=== PATIENT | female | born 1985 | race Caucasian/White ===

== ENCOUNTER 2016-09-18 16:26 | Emergency (ER) | payer MEDICAID ==
[~2016-09-18] VITALS: Ht 165.1 cm; Wt 63.2 kg
[2016-09-18 18:39] LABS: ANION GAP 9 mmol/L (8-16); CALCIUM, TOTAL 8.8 mg/dL (8.8-10.5); CARBON DIOXIDE 28 mmol/L (22-29); CHLORIDE 105 mmol/L (98-107); CREATININE 0.77 mg/dL (0.60-1.30); GLOMERULAR FILTR. RATE CALC > 60 mL/min (>60); POTASSIUM 4.1 mmol/L (3.5-5.1); SODIUM SERUM 142 mmol/L (136-145); UREA NITROGEN, BLOOD 17 mg/dL (7-18)
[2016-09-18 18:43] LABS: ALANINE AMINOTRANSFERASE 22 U/L (12-78); ALBUMIN 3.7 g/dL (3.4-5.0); ASPARTATE AMINOTRANSFERASE 13 U/L (15-37); BILIRUBIN,TOTAL 0.6 mg/dL (0.1-1.0); CREATINE KINASE, TOTAL 61 U/L (26-192); TOTAL PROTEIN, SERUM 7.4 g/dL (6.4-8.2)
[2016-09-18 18:50] LABS: BASOPHILS % (AUTO) 0.9 % (0.0-2.0); EOSINOPHILS % (AUTO) 2.9 % (1.0-6.0); HEMATOCRIT 36.2 % (36-46); HEMOGLOBIN 11.7 g/dL (12.0-16.0); LYMPHOCYTES # (AUTO) 2.2 K/uL (1.0-4.8); LYMPHOCYTES % (AUTO) 25.3 % (22.0-44.0); MEAN CORPUSCULAR HEMOGLOBIN 29.3 pg (26.0-34.0); MEAN CORPUSCULAR HGB CONC 32.3 G/dL (31.0-37.0); MEAN CORPUSCULAR VOLUME 91 fL (80-100); MONOCYTES # (AUTO) 0.7 K/uL (0.1-1.0); MONOCYTES % (AUTO) 7.9 % (2.0-9.0); NEUTROPHILS # (AUTO) 5.4 K/uL (1.8-7.7); PLATELET COUNT (AUTO) 286 K/uL (150-450); RED BLOOD CELL COUNT(AUTO) 3.98 MIL/uL (4.00-5.20); RED CELL DISTRIBUTION WIDTH 14.4 % (11.5-14.5); WHITE BLOOD COUNT (AUTO) 8.6 K/uL (4.5-11.0)
[2016-09-18 19:10] LABS: ADD UA MICROSCOPIC NO; APPEARANCE,URINE CLEAR (CLEAR); GLUCOSE, URINE (UA) NEGATIVE (NEGATIVE); KETONES,URINE NEGATIVE (NEGATIVE); LEUKOCYTE ESTERASE ,URINE NEGATIVE (NEGATIVE); OCCULT BLOOD,URINE NEGATIVE (NEGATIVE); PH,URINE 7.5 (5.0-8.0); PROTEIN,URINE NEGATIVE (NEGATIVE)
[2016-09-18 20:02] LABS: B-TYPE NATRIURETIC PEPTIDE 29 pg/mL (0-100)
[2016-09-18 23:24] VITALS: BP 138/85
== END 2016-09-18 23:26 | disposition home or self-care (01) ==
LOC: EMS 16:27
DX: I10 Essential (primary) hypertension (principal); F41.9 Anxiety disorder, unspecified; R51 Headache; F15.10 Other stimulant abuse, uncomplicated; F19.90 Other psychoactive substance use, unspecified, uncomplicated; Z88.0 Allergy status to penicillin
CPT/HCPCS: 70450; 87040; 93005; 99285

== ENCOUNTER 2016-09-21 18:08 | Emergency (ER) | payer MEDICAID ==
[~2016-09-21] VITALS: Ht 165.1 cm; Wt 65.9 kg
[2016-09-21] MEDS ORDERED: LISI-660 PO (18:17)
[2016-09-21 19:03] LABS: BASOPHILS % (AUTO) 0.5 % (0.0-2.0); EOSINOPHILS % (AUTO) 2.9 % (1.0-6.0); HEMATOCRIT 37.6 % (36-46); HEMOGLOBIN 12.1 g/dL (12.0-16.0); LYMPHOCYTES # (AUTO) 2.2 K/uL (1.0-4.8); MEAN CORPUSCULAR HEMOGLOBIN 29.1 pg (26.0-34.0); MEAN CORPUSCULAR HGB CONC 32.3 G/dL (31.0-37.0); MEAN CORPUSCULAR VOLUME 90 fL (80-100); MONOCYTES # (AUTO) 0.7 K/uL (0.1-1.0); MONOCYTES % (AUTO) 6.6 % (2.0-9.0); NEUTROPHILS # (AUTO) 6.7 K/uL (1.8-7.7); PLATELET COUNT (AUTO) 301 K/uL (150-450); RED BLOOD CELL COUNT(AUTO) 4.16 MIL/uL (4.00-5.20); RED CELL DISTRIBUTION WIDTH 14.5 % (11.5-14.5); WHITE BLOOD COUNT (AUTO) 9.8 K/uL (4.5-11.0)
[2016-09-21 19:25] LABS: LACTIC ACID 0.9 mmol/L (0.4-2.0)
[2016-09-21 19:30] LABS: ANION GAP 8 mmol/L (8-16); CALCIUM, TOTAL 8.6 mg/dL (8.8-10.5); CARBON DIOXIDE 30 mmol/L (22-29); CHLORIDE 106 mmol/L (98-107); CREATININE 0.84 mg/dL (0.60-1.30); GLOMERULAR FILTR. RATE CALC > 60 mL/min (>60); SODIUM SERUM 144 mmol/L (136-145); UREA NITROGEN, BLOOD 19 mg/dL (7-18)
[2016-09-21 19:35] LABS: ALANINE AMINOTRANSFERASE 18 U/L (12-78); ALBUMIN 3.7 g/dL (3.4-5.0); ASPARTATE AMINOTRANSFERASE 13 U/L (15-37); BILIRUBIN,TOTAL 0.5 mg/dL (0.1-1.0); TOTAL PROTEIN, SERUM 7.5 g/dL (6.4-8.2)
[2016-09-21 21:10] VITALS: BP 131/85
== END 2016-09-21 21:10 | disposition home or self-care (01) ==
LOC: EMS 18:09
DX: R51 Headache (principal); I10 Essential (primary) hypertension; Z87.891 Personal history of nicotine dependence; Z88.0 Allergy status to penicillin; F15.90 Other stimulant use, unspecified, uncomplicated
CPT/HCPCS: 80074; 83605; 87040; 99284; 99406

== ENCOUNTER 2016-09-25 01:31 | Emergency (ER) | payer MEDICAID ==
[~2016-09-25] VITALS: Ht 165.1 cm; Wt 66.0 kg
[~2016-09-25 01:31] MED LIST: LISI-660 PO
[2016-09-25 02:35] LABS: APPEARANCE,URINE CLEAR (CLEAR); GLUCOSE, URINE (UA) NEGATIVE (NEGATIVE); KETONES,URINE NEGATIVE (NEGATIVE); LEUKOCYTE ESTERASE ,URINE NEGATIVE (NEGATIVE); OCCULT BLOOD,URINE NEGATIVE (NEGATIVE); PH,URINE 5.5 (5.0-8.0); PROTEIN,URINE NEGATIVE (NEGATIVE)
[2016-09-25 02:39] LABS: ADD UA MICROSCOPIC NO
[2016-09-25 03:05] LABS: BASOPHILS # (AUTO) 0.03 K/uL (0.00-0.20); BASOPHILS % (AUTO) 0.3 % (0.0-2.0); EOSINOPHILS # (AUTO) 0.28 K/uL (0.00-0.70); EOSINOPHILS % (AUTO) 2.96 % (1.0-6.0); HEMATOCRIT 33.5 % (36-46); HEMOGLOBIN 10.9 g/dL (12.0-16.0); LYMPHOCYTES # (AUTO) 2.2 K/uL (1.0-4.8); LYMPHOCYTES % (AUTO) 23.3 % (22.0-44.0); MEAN CORPUSCULAR HEMOGLOBIN 29.9 pg (26.0-34.0); MEAN CORPUSCULAR HGB CONC 32.7 G/dL (31.0-37.0); MEAN CORPUSCULAR VOLUME 92 fL (80-100); MONOCYTES # (AUTO) 0.8 K/uL (0.1-1.0); MONOCYTES % (AUTO) 8.6 % (2.0-9.0); NEUTROPHILS # (AUTO) 6.2 K/uL (1.8-7.7); NEUTROPHILS % (AUTO) 64.9 % (40.0-70.0); PLATELET COUNT (AUTO) 246 K/uL (150-450); RED BLOOD CELL COUNT(AUTO) 3.65 MIL/uL (4.00-5.20); RED CELL DISTRIBUTION WIDTH 14.4 % (11.5-14.5); WHITE BLOOD COUNT (AUTO) 9.6 K/uL (4.5-11.0)
[2016-09-25 03:11] LABS: ANION GAP 3 mmol/L (8-16); CALCIUM, TOTAL 8.4 mg/dL (8.8-10.5); CARBON DIOXIDE 31 mmol/L (22-29); CHLORIDE 106 mmol/L (98-107); CREATININE 0.72 mg/dL (0.60-1.30); GLOMERULAR FILTR. RATE CALC > 60 mL/min (>60); POTASSIUM 3.4 mmol/L (3.5-5.1); SODIUM SERUM 140 mmol/L (136-145); UREA NITROGEN, BLOOD 17 mg/dL (7-18)
[2016-09-25 03:17] LABS: ALANINE AMINOTRANSFERASE 17 U/L (12-78); ALBUMIN 3.2 g/dL (3.4-5.0); ASPARTATE AMINOTRANSFERASE 11 U/L (15-37); BILIRUBIN,TOTAL 0.5 mg/dL (0.1-1.0); TOTAL PROTEIN, SERUM 6.5 g/dL (6.4-8.2)
[2016-09-25 04:19] VITALS: BP 138/99
== END 2016-09-25 05:00 | disposition home or self-care (01) ==
LOC: EMS 01:32
DX: K80.50 Calculus of bile duct without cholangitis or cholecystitis without obstruction (principal); I10 Essential (primary) hypertension; F15.90 Other stimulant use, unspecified, uncomplicated; Z88.0 Allergy status to penicillin; Z87.891 Personal history of nicotine dependence
CPT/HCPCS: 76705; 93005; 99285

== ENCOUNTER 2017-01-05 19:56 | Emergency (ER) | payer MEDICAID | END 2017-01-05 20:26 | disposition left against medical advice (07) | LOC: EMS 19:58 | DX: R69 Illness, unspecified (principal); Z53.21 Procedure and treatment not carried out due to patient leaving prior to being seen by health care provider ==

== ENCOUNTER 2017-07-15 06:43 | Emergency (ER) | payer MEDICAID ==
[~2017-07-15] VITALS: Ht 165.1 cm; Wt 68.0 kg
[2017-07-15] MEDS ORDERED: SODIUM CHLORIDE 0.9% 1,000 ML IV ONE (07:30)
[2017-07-15 07:40] LABS: BASOPHILS % (AUTO) 0.4 % (0.0-2.0); EOSINOPHILS % (AUTO) 0.1 % (1.0-6.0); HEMATOCRIT 34.8 % (36-46); HEMOGLOBIN 11.9 g/dL (12.0-16.0); LYMPHOCYTES # (AUTO) 0.9 K/uL (1.0-4.8); LYMPHOCYTES % (AUTO) 10.7 % (22.0-44.0); MEAN CORPUSCULAR HEMOGLOBIN 30.3 pg (26.0-34.0); MEAN CORPUSCULAR HGB CONC 34.1 G/dL (31.0-37.0); MEAN CORPUSCULAR VOLUME 89 fL (80-100); MONOCYTES # (AUTO) 0.4 K/uL (0.1-1.0); NEUTROPHILS # (AUTO) 7.3 K/uL (1.8-7.7); NEUTROPHILS % (AUTO) 83.8 % (40.0-70.0); PLATELET COUNT (AUTO) 300 K/uL (150-450); RED BLOOD CELL COUNT(AUTO) 3.92 MIL/uL (4.00-5.20); RED CELL DISTRIBUTION WIDTH 14.1 % (11.5-14.5)
[2017-07-15 07:50] LABS: ANION GAP 10 mmol/L (8-16); CALCIUM, TOTAL 9.1 mg/dL (8.8-10.5); CARBON DIOXIDE 26 mmol/L (22-29); CHLORIDE 104 mmol/L (98-107); CREATININE 0.71 mg/dL (0.60-1.30); GLOMERULAR FILTR. RATE CALC > 60 mL/min (>60); GLUCOSE,RANDOM 124 mg/dL (70-110); POTASSIUM 3.6 mmol/L (3.5-5.1); SODIUM SERUM 140 mmol/L (136-145); UREA NITROGEN, BLOOD 18 mg/dL (7-18)
[2017-07-15 07:56] LABS: ALANINE AMINOTRANSFERASE 22 U/L (12-78); ALBUMIN 4.2 g/dL (3.4-5.0); ALKALINE PHOSPHATASE 64 U/L (46-116); ASPARTATE AMINOTRANSFERASE 19 U/L (15-37); BILIRUBIN,TOTAL 0.5 mg/dL (0.1-1.0); LIPASE 60 U/L (73-393)
[2017-07-15] MEDS ORDERED: LORazepam 2 MG/ML VIAL IVP ONE ×2 (08:00→09:30)
[2017-07-15 08:39] LABS: AMPHET/METH SCREEN,URINE POSITIVE (NEGATIVE); BARBITURATE SCREEN, URINE NEGATIVE (NEGATIVE); BENZODIAZEPINES SCREEN,URINE NEGATIVE (NEGATIVE); CANNABINOID SCREEN,URINE NEGATIVE (NEGATIVE); COCAINE SCREEN,URINE NEGATIVE (NEGATIVE); METHADONE SCREEN, URINE NEGATIVE (NEGATIVE); OPIATE SCREEN,URINE NEGATIVE (NEGATIVE)
[2017-07-15 08:40] LABS: PHENCYCLIDINE SCREEN,URINE NEGATIVE (NEGATIVE)
[2017-07-15 09:06] LABS: BILIRUBIN,URINE NEGATIVE (NEGATIVE); GLUCOSE, URINE (UA) NEGATIVE (NEGATIVE); KETONES,URINE TRACE mg/dL (NEGATIVE); LEUKOCYTE ESTERASE ,URINE NEGATIVE (NEGATIVE); NITRATE,URINE NEGATIVE (NEGATIVE); OCCULT BLOOD,URINE NEGATIVE (NEGATIVE); PROTEIN,URINE NEGATIVE (NEGATIVE); UROBILINOGEN,URINE 0.2 mg/dL (<=1.0)
[2017-07-15 09:14] LABS: APPEARANCE,URINE HAZY (CLEAR)
[2017-07-15 11:00] VITALS: BP 142/92
[2017-07-15] MEDS ORDERED: LISINOPRIL 10 MG TABLET PO ONE (11:00)
== END 2017-07-15 12:00 | disposition home or self-care (01) ==
LOC: EMS 06:44
DX: R07.9 Chest pain, unspecified (principal); R06.02 Shortness of breath; F15.10 Other stimulant abuse, uncomplicated; I10 Essential (primary) hypertension; Z87.891 Personal history of nicotine dependence; Z88.0 Allergy status to penicillin
CPT/HCPCS: 36415; 71045; 80053; 80307; 81003; 83690; 84484; 84703; 85025; 93005; 96361; 96374; 99285; J2060; J7030

== ENCOUNTER 2018-01-06 15:36 | Emergency (ER) | payer MEDICAID ==
[~2018-01-06] VITALS: Ht 165.1 cm; Wt 68.0 kg
[2018-01-06] MEDS ORDERED: LORazepam 2 MG/ML VIAL IM ONE (16:30)
[2018-01-06] MEDS ORDERED: HALOPERIDOL LACTATE 5 MG/ML VIAL IM ONE (16:30)
[2018-01-06] MEDS ORDERED: DiphenhydrAMINE HCL 50 MG/ML VIAL IM ONE (16:30)
[2018-01-06 18:25] LABS: BASOPHILS % (AUTO) 0.4 % (0.0-2.0); EOSINOPHILS % (AUTO) 0.1 % (1.0-6.0); LYMPHOCYTES # (AUTO) 0.7 K/uL (1.0-4.8); LYMPHOCYTES % (AUTO) 4.8 % (22.0-44.0); MEAN CORPUSCULAR HEMOGLOBIN 29.5 pg (26.0-34.0); MEAN CORPUSCULAR HGB CONC 33.2 G/dL (31.0-37.0); MEAN CORPUSCULAR VOLUME 89 fL (80-100); MONOCYTES % (AUTO) 6.7 % (2.0-9.0); NEUTROPHILS # (AUTO) 13.3 K/uL (1.8-7.7); PLATELET COUNT (AUTO) 251 K/uL (150-450); RED BLOOD CELL COUNT(AUTO) 3.72 MIL/uL (4.00-5.20); RED CELL DISTRIBUTION WIDTH 14.5 % (11.5-14.5)
[2018-01-06 18:35] LABS: ANION GAP 11 mmol/L (8-16); CALCIUM, TOTAL 8.5 mg/dL (8.8-10.5); CARBON DIOXIDE 24 mmol/L (22-29); CHLORIDE 112 mmol/L (98-107); CREATININE 1.19 mg/dL (0.60-1.30); GLOMERULAR FILTR. RATE CALC 53 mL/min (>60); GLUCOSE,RANDOM 97 mg/dL (70-110); POTASSIUM 3.2 mmol/L (3.5-5.1); SODIUM SERUM 147 mmol/L (136-145); UREA NITROGEN, BLOOD 32 mg/dL (7-18)
[2018-01-06 18:39] LABS: PLATELET MORPHOLOGY COMMENT LARGE PLTS PRESENT
[2018-01-06 18:40] LABS: ALANINE AMINOTRANSFERASE 50 U/L (12-78); ALBUMIN 3.6 g/dL (3.4-5.0); ALKALINE PHOSPHATASE 66 U/L (46-116); ASPARTATE AMINOTRANSFERASE 70 U/L (15-37); BILIRUBIN,TOTAL 1.6 mg/dL (0.1-1.0); TOTAL PROTEIN, SERUM 6.7 g/dL (6.4-8.2)
[2018-01-06] MEDS ORDERED: POTASSIUM CHLORIDE 20 MEQ ER TABLET PO ONE (19:30)
[2018-01-07 05:58] VITALS: BP 123/77
== END 2018-01-07 07:05 | disposition home or self-care (01) ==
LOC: EMS 15:38
DX: R45.1 Restlessness and agitation (principal); I10 Essential (primary) hypertension; F19.90 Other psychoactive substance use, unspecified, uncomplicated; Z87.891 Personal history of nicotine dependence; Z88.0 Allergy status to penicillin
CPT/HCPCS: 36415; 80053; 82962; 85025; 96372; 99284; G0480; J1200; J1630; J2060

== ENCOUNTER 2019-09-07 08:38 | Emergency (ER) | payer MEDICAID ==
[~2019-09-07] VITALS: Ht 170.2 cm; Wt 81.8 kg
[2019-09-07 08:43] VITALS: BP 134/88
[2019-09-07] MEDS ORDERED: PERTUSS(ACELL),DIPH,TET VAC/PF 0.5 ML VIAL IM ONE (09:00)
[2019-09-07] MEDS ORDERED: LIDOCAINE 1%/EPI 1:200,000/PF 10 ML VIAL INJ ONE (09:00)
[2019-09-07] MEDS ORDERED: SULFAMETHOX/TRIMETH DS 800-160 MG/TABLET PO ONE (09:45)
[2019-09-07] MEDS ORDERED: IBUPROFEN 600 MG TABLET PO ONE (10:00)
== END 2019-09-07 10:03 | disposition home or self-care (01) ==
LOC: EMS 08:43
DX: L02.414 Cutaneous abscess of left upper limb (principal); F11.120 Opioid abuse with intoxication, uncomplicated; F15.90 Other stimulant use, unspecified, uncomplicated; I10 Essential (primary) hypertension; Z87.891 Personal history of nicotine dependence
CPT/HCPCS: 10060; 90471; 90715; 99283; J3490

== ENCOUNTER 2019-09-09 09:08 | Emergency (ER) | payer MEDICAID ==
[~2019-09-09] VITALS: Ht 165.1 cm; Wt 84.0 kg
[2019-09-09] MEDS ORDERED: ARIP2 PO (09:12)
[2019-09-09] MEDS ORDERED: antibiotic PO (09:12)
[2019-09-09] MEDS ORDERED: IBUP-2271 PO (09:12)
[2019-09-09 09:14] VITALS: BP 116/71
== END 2019-09-09 11:20 | disposition home or self-care (01) ==
LOC: EMS 09:09
DX: Z48.00 Encounter for change or removal of nonsurgical wound dressing (principal); I10 Essential (primary) hypertension; F11.90 Opioid use, unspecified, uncomplicated; F19.90 Other psychoactive substance use, unspecified, uncomplicated; Z87.891 Personal history of nicotine dependence; Z79.899 Other long term (current) drug therapy; Z88.0 Allergy status to penicillin

== ENCOUNTER 2020-02-03 16:29 | Observation (INO) | payer MEDICAID ==
[~2020-02-03] VITALS: Ht 160 cm; Wt 93.9 kg
[~2020-02-03 16:29] MED LIST changes: +ARIP2 PO; +IBUP-2759 PO; +antibiotic PO
[2020-02-03 17:21] VITALS: BP 111/74
[2020-02-03 18:18] LABS: APPEARANCE,URINE CLEAR (CLEAR); BILIRUBIN,URINE NEGATIVE (NEGATIVE); GLUCOSE, URINE (UA) NEGATIVE (NEGATIVE); KETONES,URINE NEGATIVE (NEGATIVE); LEUKOCYTE ESTERASE ,URINE NEGATIVE (NEGATIVE); NITRATE,URINE NEGATIVE (NEGATIVE); OCCULT BLOOD,URINE NEGATIVE (NEGATIVE); PROTEIN,URINE NEGATIVE (NEGATIVE); UROBILINOGEN,URINE 0.2 mg/dL (<=1.0)
== END 2020-02-03 20:40 | disposition home or self-care (01) ==
LOC: 4S 16:30
PROVIDERS: ADMIT Obstetrics & Gynecology; ATTEND Obstetrics & Gynecology
DX: O26.892 Other specified pregnancy related conditions, second trimester (principal); R10.30 Lower abdominal pain, unspecified; Z3A.24 24 weeks gestation of pregnancy; Z79.899 Other long term (current) drug therapy
CPT/HCPCS: 59025; 76811; 80307; 87426; 99219

== ENCOUNTER 2020-04-06 10:55 | Observation (INO) | payer MEDICAID, OTHER ==
[~2020-04-06] VITALS: Ht 165.1 cm; Wt 98.9 kg
[2020-04-06] MEDS ORDERED: ASPI-728 PO (11:36)
[2020-04-06] MEDS ORDERED: PREN-217 PO (11:36)
[2020-04-06 11:53] VITALS: BP 106/60
[2020-04-06] MEDS ORDERED: RINGERS SOLUTION,LACTATED 1,000 ML IV ONE (12:00)
[2020-04-06 12:38] LABS: BASOPHILS % (AUTO) 0.2 % (0.0-2.0); EOSINOPHILS % (AUTO) 1.9 % (1.0-6.0); HEMATOCRIT 31.7 % (36-46); HEMOGLOBIN 10.7 g/dL (12.0-16.0); LYMPHOCYTES # (AUTO) 1.2 K/uL (1.0-4.8); LYMPHOCYTES % (AUTO) 11.6 % (22.0-44.0); MEAN CORPUSCULAR HEMOGLOBIN 30.1 pg (26.0-34.0); MEAN CORPUSCULAR HGB CONC 33.6 G/dL (31.0-37.0); MEAN CORPUSCULAR VOLUME 90 fL (80-100); MONOCYTES # (AUTO) 0.7 K/uL (0.1-1.0); MONOCYTES % (AUTO) 6.8 % (2.0-9.0); NEUTROPHILS # (AUTO) 8.1 K/uL (1.8-7.7); NEUTROPHILS % (AUTO) 79.5 % (40.0-70.0); PLATELET COUNT (AUTO)-OB 321 K/uL (150-450); RED BLOOD CELL COUNT(AUTO) 3.54 MIL/uL (4.00-5.20); RED CELL DISTRIBUTION WIDTH 13.1 % (11.5-14.5)
[2020-04-06 12:54] LABS: COVID AG,FIA SOURCE NASOPHARYNGEAL
[2020-04-06] MEDS ORDERED: MAG HYDROX/AL HYDROX/SIMETH 30 ML SUSP UDCUP PO ONE (13:00)
[2020-04-06 13:19] LABS: ANION GAP 10 mmol/L (8-16); CALCIUM, TOTAL 9.2 mg/dL (8.8-10.5); CARBON DIOXIDE 24 mmol/L (22-29); CHLORIDE 104 mmol/L (98-107); CREATININE 0.62 mg/dL (0.60-1.30); GLOMERULAR FILTR. RATE CALC > 60 mL/min (>60); GLUCOSE,RANDOM 85 mg/dL (70-110); SODIUM SERUM 138 mmol/L (136-145); UREA NITROGEN, BLOOD 12 mg/dL (7-18)
[2020-04-06 13:27] LABS: ALANINE AMINOTRANSFERASE 13 U/L (12-78); ALBUMIN 2.6 g/dL (3.4-5.0); ALKALINE PHOSPHATASE 100 U/L (46-116); AMYLASE 34 U/L (25-115); ASPARTATE AMINOTRANSFERASE 15 U/L (15-37); BILIRUBIN,TOTAL 0.5 mg/dL (0.1-1.0); LIPASE 62 U/L (73-393); TOTAL PROTEIN, SERUM 7.1 g/dL (6.4-8.2)
[2020-04-06 13:28] LABS: HEMOGLOBIN A1C 5.3 % (3.8-5.6)
[2020-04-06] MEDS ORDERED: PANTOPRAZOLE SODIUM 40 MG DR TABLET PO SCH (14:15)
[2020-04-06 17:01] LABS: BASOPHILS % (AUTO) 0.6 % (0.0-2.0); EOSINOPHILS % (AUTO) 2.2 % (1.0-6.0); HEMATOCRIT 30.1 % (36-46); HEMOGLOBIN 10.2 g/dL (12.0-16.0); LYMPHOCYTES # (AUTO) 1.6 K/uL (1.0-4.8); LYMPHOCYTES % (AUTO) 15.7 % (22.0-44.0); MEAN CORPUSCULAR HEMOGLOBIN 30.2 pg (26.0-34.0); MEAN CORPUSCULAR VOLUME 89 fL (80-100); MONOCYTES # (AUTO) 0.7 K/uL (0.1-1.0); MONOCYTES % (AUTO) 6.8 % (2.0-9.0); NEUTROPHILS # (AUTO) 7.8 K/uL (1.8-7.7); NEUTROPHILS % (AUTO) 74.7 % (40.0-70.0); PLATELET COUNT (AUTO)-OB 289 K/uL (150-450); RED BLOOD CELL COUNT(AUTO) 3.38 MIL/uL (4.00-5.20); RED CELL DISTRIBUTION WIDTH 13.1 % (11.5-14.5)
== END 2020-04-06 17:30 | disposition home or self-care (01) ==
LOC: 4S 10:55
PROVIDERS: ADMIT Obstetrics & Gynecology; ATTEND Obstetrics & Gynecology
DX: O99.613 Diseases of the digestive system complicating pregnancy, third trimester (principal); Z20.828 Contact with and (suspected) exposure to other viral communicable diseases; K92.0 Hematemesis; K21.9 Gastro-esophageal reflux disease without esophagitis; O16.3 Unspecified maternal hypertension, third trimester; Z3A.33 33 weeks gestation of pregnancy
CPT/HCPCS: 59025; 76705; 76811; 80307; 83036; 87426; 96360; 96361; 99219

== ENCOUNTER 2020-04-22 14:12 | Observation (INO) | payer OTHER ==
[~2020-04-22] VITALS: Ht 160 cm; Wt 106.1 kg
[~2020-04-22 14:12] MED LIST changes: +ASPI-728 PO; +PREN-217 PO; -antibiotic PO
[2020-04-22 14:23] VITALS: BP 111/73
[2020-04-22 14:49] VITALS: BP 111/73
== END 2020-04-22 16:05 | disposition home or self-care (01) ==
LOC: 4S 14:12
PROVIDERS: ADMIT Obstetrics & Gynecology Obstetrics; ATTEND Obstetrics & Gynecology Obstetrics
DX: Z34.93 Encounter for supervision of normal pregnancy, unspecified, third trimester (principal); Z3A.35 35 weeks gestation of pregnancy
CPT/HCPCS: 59025; 99219

== ENCOUNTER 2020-04-27 14:40 | Observation (INO) | payer OTHER ==
[2020-04-27 15:21] LABS: COVID AG,FIA SOURCE NASOPHARYNGEAL
[2020-04-28] MEDS ORDERED: PREN-217 PO (08:25)
== END 2020-04-27 14:55 | disposition home or self-care (01) ==
LOC: 4S 14:40
PROVIDERS: ADMIT Obstetrics & Gynecology; ATTEND Obstetrics & Gynecology
DX: Z34.93 Encounter for supervision of normal pregnancy, unspecified, third trimester (principal); Z20.828 Contact with and (suspected) exposure to other viral communicable diseases; Z3A.36 36 weeks gestation of pregnancy
CPT/HCPCS: 87426; 99219

== ENCOUNTER 2020-04-28 07:55 | Inpatient (IN) | payer OTHER ==
[~2020-04-28] VITALS: Ht 165.1 cm; Wt 105.2 kg
[2020-04-28] MEDS ORDERED: METOCLOPRAMIDE HCL 5 MG/ML 2 ML VIAL IVP ONE (08:00)
[2020-04-28] MEDS ORDERED: CITRIC ACID/SODIUM CITRATE 30 ML SOLUTION UDCUP PO ONE (08:00)
[2020-04-28] MEDS ORDERED: RINGERS SOLUTION,LACTATED 1,000 ML IV ONE ×2 (08:00→10:00)
[2020-04-28] MEDS ORDERED: PREN-217 PO (08:25)
[2020-04-28 09:01] VITALS: BP 109/60
[2020-04-28] MEDS ORDERED: MORPHINE SULFATE/PF 0.5 MG/ML 10 ML AMP ONE (09:30)
[2020-04-28] MEDS ORDERED: FentaNYL CITRATE-PF 100 MCG/2 ML VIAL ONE (09:30)
[2020-04-28] MEDS ORDERED: BUPIVACAINE HCL/DEX-WATER/PF 0.75% 2 ML AMP ITH ONE (09:31)
[2020-04-28] MEDS ORDERED: ACETAMINOPHEN 1000 MG/ISO-OSM 100 ML IV ONE (09:31)
[2020-04-28] MEDS ORDERED: GUM MASTIC/STORAX/MSAL/ALCOHOL LIQUID 0.67 ML VIAL TP ONE (09:33)
[2020-04-28 10:13] LABS: BASOPHILS % (AUTO) 0.5 % (0.0-2.0); EOSINOPHILS % (AUTO) 1.6 % (1.0-6.0); HEMATOCRIT 29.8 % (36-46); HEMOGLOBIN 9.9 g/dL (12.0-16.0); LYMPHOCYTES # (AUTO) 1.3 K/uL (1.0-4.8); LYMPHOCYTES % (AUTO) 12.5 % (22.0-44.0); MEAN CORPUSCULAR HEMOGLOBIN 29.2 pg (26.0-34.0); MEAN CORPUSCULAR HGB CONC 33.3 G/dL (31.0-37.0); MEAN CORPUSCULAR VOLUME 88 fL (80-100); MONOCYTES # (AUTO) 0.6 K/uL (0.1-1.0); MONOCYTES % (AUTO) 5.5 % (2.0-9.0); NEUTROPHILS # (AUTO) 8.3 K/uL (1.8-7.7); NEUTROPHILS % (AUTO) 79.9 % (40.0-70.0); PLATELET COUNT (AUTO) 287 K/uL (150-450); RED BLOOD CELL COUNT(AUTO) 3.39 MIL/uL (4.00-5.20); RED CELL DISTRIBUTION WIDTH 13.1 % (11.5-14.5)
[2020-04-28] MEDS ORDERED: DiphenhydrAMINE HCL 50 MG/ML VIAL IVP PRN ×2 (10:30→14:45)
[2020-04-28] MEDS ORDERED: ONDANSETRON HCL 4 MG/2 ML VIAL IVP PRN ×2 (10:30→14:45)
[2020-04-28] MEDS ORDERED: DEXAMETHASONE SOD PHOS 4 MG/ML VIAL IVP PRN (10:30)
[2020-04-28] MEDS ORDERED: DiphenhydrAMINE HCL 50 MG/ML VIAL ONE (12:07)
[2020-04-28] MEDS ORDERED: OXYTOCIN 30 UNITS/LACT RINGERS 500 ML IV ONE (14:15)
[2020-04-28] MEDS ORDERED: MEASLES/MUMPS/RUBELLA VACCINE, LIVE 0.5 ML/VIAL SQ ONE (14:45)
[2020-04-28] MEDS ORDERED: NALOXONE HCL 0.4 MG/ML VIAL IVP PRN (14:45)
[2020-04-28] MEDS: LANOLIN 7 GM OINTMENT TP PRN (15:36)
[2020-04-28] MEDS: RINGERS SOLUTION,LACTATED 1,000 ML IV SCH (15:37)
[2020-04-28] MEDS: MORPHINE SULFATE 10 MG/ML SYRINGE IVP PRN (16:30)
[2020-04-28] MEDS: ACETAMINOPHEN 1000 MG/ISO-OSM 100 ML IV SCH (18:38)
[2020-04-28] MEDS ORDERED: OXYGEN THERAPY IH SCH ×3 (20:00)
[2020-04-29] MEDS: RINGERS SOLUTION,LACTATED 1,000 ML IV SCH (00:21)
[2020-04-29] MEDS: ACETAMINOPHEN 1000 MG/ISO-OSM 100 ML IV SCH (00:39)
[2020-04-29] MEDS: MORPHINE SULFATE 10 MG/ML SYRINGE IVP PRN (01:31)
[2020-04-29] MEDS: FentaNYL CITRATE-PF 100 MCG/2 ML VIAL IVP PRN ×2 (04:38→07:35)
[2020-04-29] MEDS ORDERED: EPHEDrine SULFATE 50 MG/ML VIAL IM ONE (06:27)
[2020-04-29] MEDS ORDERED: 0.9% SODIUM CHLORIDE 10 ML VIAL IVP ONE (06:27)
[2020-04-29] MEDS ORDERED: OXYTOCIN 10 UNITS/ML VIAL IM ONE (06:27)
[2020-04-29] MEDS ORDERED: ONDANSETRON HCL 4 MG/2 ML VIAL IVP ONE (06:27)
[2020-04-29 06:45] LABS: BASOPHILS % (AUTO) 0.2 % (0.0-2.0); EOSINOPHILS % (AUTO) 1.4 % (1.0-6.0); HEMATOCRIT 25.1 % (36-46); HEMOGLOBIN 8.2 g/dL (12.0-16.0); LYMPHOCYTES # (AUTO) 1.2 K/uL (1.0-4.8); LYMPHOCYTES % (AUTO) 10.2 % (22.0-44.0); MEAN CORPUSCULAR HEMOGLOBIN 29.2 pg (26.0-34.0); MEAN CORPUSCULAR HGB CONC 32.8 G/dL (31.0-37.0); MEAN CORPUSCULAR VOLUME 89 fL (80-100); MONOCYTES # (AUTO) 0.8 K/uL (0.1-1.0); MONOCYTES % (AUTO) 6.4 % (2.0-9.0); NEUTROPHILS # (AUTO) 9.7 K/uL (1.8-7.7); NEUTROPHILS % (AUTO) 81.8 % (40.0-70.0); PLATELET COUNT (AUTO)-OB 253 K/uL (150-450); RED BLOOD CELL COUNT(AUTO) 2.82 MIL/uL (4.00-5.20)
[2020-04-29] MEDS ORDERED: IRON SUCROSE COMPLEX 200 MG in SODIUM CHLORIDE 0.9% 100 ML IV ONE (08:45)
[2020-04-29] MEDS: CYCLOBENZAPRINE HCL 10 MG TABLET PO PRN (10:12)
[2020-04-29] MEDS: OxyCODONE HCL/ACETAMINOPHEN 5-325 MG TABLET PO PRN ×3 (10:21→20:09)
[2020-04-29] MEDS: MAGNESIUM HYDROXIDE SUSPENSION 30 ML UDCUP PO SCH (10:22)
[2020-04-29] MEDS: IBUPROFEN 800 MG TABLET PO PRN ×2 (12:20→20:08)
[2020-04-30] MEDS: IBUPROFEN 800 MG TABLET PO PRN ×3 (02:04→17:00)
[2020-04-30] MEDS: MAGNESIUM HYDROXIDE SUSPENSION 30 ML UDCUP PO SCH ×2 (07:49→20:51)
[2020-04-30] MEDS: OxyCODONE HCL/ACETAMINOPHEN 5-325 MG TABLET PO PRN (12:12)
[2020-04-30] MEDS: SOD FERRIC GLUC COMPLX/SUCROSE 125 MG in SODIUM CHLORIDE 0.9% 100 ML IV SCH (15:32)
[2020-05-01] MEDS: IBUPROFEN 800 MG TABLET PO PRN ×4 (00:24→19:18)
[2020-05-01] MEDS: OxyCODONE HCL/ACETAMINOPHEN 5-325 MG TABLET PO PRN ×4 (01:05→19:18)
[2020-05-01] MEDS: MAGNESIUM HYDROXIDE SUSPENSION 30 ML UDCUP PO SCH ×2 (09:00→19:35)
[2020-05-01] MEDS: CYCLOBENZAPRINE HCL 10 MG TABLET PO PRN (09:05)
[2020-05-01] MEDS ORDERED: PERCT PO (09:30)
[2020-05-01] MEDS ORDERED: IBUP-2071 PO (09:31)
[2020-05-01] MEDS ORDERED: FERR-89 PO (09:32)
[2020-05-01] MEDS ORDERED: DOCU-275 PO (09:33)
[2020-05-01] MEDS: SOD FERRIC GLUC COMPLX/SUCROSE 125 MG in SODIUM CHLORIDE 0.9% 100 ML IV SCH (15:02)
[2020-05-02] MEDS: OxyCODONE HCL/ACETAMINOPHEN 5-325 MG TABLET PO PRN ×3 (00:33→13:52)
[2020-05-02] MEDS: LANOLIN 7 GM OINTMENT TP PRN (03:23)
[2020-05-02] MEDS: MAGNESIUM HYDROXIDE SUSPENSION 30 ML UDCUP PO SCH (07:46)
[2020-05-02] MEDS: IBUPROFEN 800 MG TABLET PO PRN ×2 (07:46→13:51)
[2020-05-02 08:46] LABS: BASOPHILS % (AUTO) 0.7 % (0.0-2.0); EOSINOPHILS % (AUTO) 4.9 % (1.0-6.0); HEMATOCRIT 24.8 % (36-46); HEMOGLOBIN 8.2 g/dL (12.0-16.0); LYMPHOCYTES # (AUTO) 1.2 K/uL (1.0-4.8); MEAN CORPUSCULAR HEMOGLOBIN 29.1 pg (26.0-34.0); MEAN CORPUSCULAR HGB CONC 32.9 G/dL (31.0-37.0); MEAN CORPUSCULAR VOLUME 89 fL (80-100); MONOCYTES # (AUTO) 0.7 K/uL (0.1-1.0); MONOCYTES % (AUTO) 7.6 % (2.0-9.0); NEUTROPHILS # (AUTO) 6.4 K/uL (1.8-7.7); NEUTROPHILS % (AUTO) 72.8 % (40.0-70.0); PLATELET COUNT (AUTO)-OB 336 K/uL (150-450); RED CELL DISTRIBUTION WIDTH 13.6 % (11.5-14.5)
[2020-05-02] MEDS: SOD FERRIC GLUC COMPLX/SUCROSE 125 MG in SODIUM CHLORIDE 0.9% 100 ML IV SCH (14:56)
[2020-05-02] MEDS: CYCLOBENZAPRINE HCL 10 MG TABLET PO PRN (15:10)
== END 2020-05-02 18:15 | disposition home or self-care (01) | DRG 540 ==
LOC: OBSVTOIN 07:55 → 4S 07:55
PROVIDERS: ADMIT Obstetrics & Gynecology; ATTEND Obstetrics & Gynecology
PROC: 10D00Z1 Extraction of Products of Conception, Low, Open Approach (ICD-10-PCS; principal; 2020-04-28)
PROC: 0DNW0ZZ Release Peritoneum, Open Approach (ICD-10-PCS; 2020-04-28)
PROC: 0JN80ZZ Release Abdomen Subcutaneous Tissue and Fascia, Open Approach (ICD-10-PCS; 2020-04-28)
PROC: 3E0234Z Introduction of Serum, Toxoid and Vaccine into Muscle, Percutaneous Approach (ICD-10-PCS; 2020-04-28)
DX: O34.211 Maternal care for low transverse scar from previous cesarean delivery (principal); Z3A.36 36 weeks gestation of pregnancy; Z37.0 Single live birth; Z23 Encounter for immunization
CPT/HCPCS: 86850; 86900; 86901; 86923; 87081; 90707; J0131; J0690; J1200; J1756; J2270; J2274; J2405; J2590; J2765; J2916; J3010; J3490; J7050; J7120

== ENCOUNTER 2020-05-04 20:30 | Observation (INO) | payer OTHER ==
[~2020-05-04] VITALS: Ht 167.6 cm; Wt 90.7 kg
[~2020-05-04 20:30] MED LIST changes: -ARIP2 PO; -ASPI-728 PO; +DOCU-275 PO; +FERR-89 PO; +IBUP-2071 PO; -IBUP-2759 PO; -LISI-660 PO; +PERCT PO
[2020-05-04 21:00] VITALS: BP 123/78
== END 2020-05-04 22:19 | disposition home or self-care (01) ==
LOC: 4S 20:30
PROVIDERS: ADMIT Obstetrics & Gynecology; ATTEND Obstetrics & Gynecology
DX: O90.89 Other complications of the puerperium, not elsewhere classified (principal); G89.18 Other acute postprocedural pain; R51.9 Headache, unspecified
CPT/HCPCS: 99219

== ENCOUNTER 2020-05-10 15:40 | Observation (INO) | payer OTHER ==
[2020-05-10 16:48] VITALS: BP 158/90
[2020-05-10 17:25] LABS: BASOPHILS % (AUTO) 0.8 % (0.0-2.0); EOSINOPHILS % (AUTO) 4.9 % (1.0-6.0); HEMATOCRIT 28.8 % (36-46); HEMOGLOBIN 9.5 g/dL (12.0-16.0); LYMPHOCYTES # (AUTO) 1.5 K/uL (1.0-4.8); MEAN CORPUSCULAR HEMOGLOBIN 29.3 pg (26.0-34.0); MEAN CORPUSCULAR VOLUME 89 fL (80-100); MONOCYTES # (AUTO) 0.6 K/uL (0.1-1.0); MONOCYTES % (AUTO) 6.6 % (2.0-9.0); NEUTROPHILS # (AUTO) 7.1 K/uL (1.8-7.7); NEUTROPHILS % (AUTO) 72.7 % (40.0-70.0); PLATELET COUNT (AUTO) 480 K/uL (150-450); RED BLOOD CELL COUNT(AUTO) 3.24 MIL/uL (4.00-5.20)
[2020-05-10 17:40] LABS: ALANINE AMINOTRANSFERASE 26 U/L (12-78); ALBUMIN 2.8 g/dL (3.4-5.0); ALKALINE PHOSPHATASE 127 U/L (46-116); ANION GAP 9 mmol/L (8-16); ASPARTATE AMINOTRANSFERASE 16 U/L (15-37); BILIRUBIN,TOTAL 0.4 mg/dL (0.1-1.0); CALCIUM, TOTAL 8.3 mg/dL (8.8-10.5); CARBON DIOXIDE 26 mmol/L (22-29); CHLORIDE 106 mmol/L (98-107); GLOMERULAR FILTR. RATE CALC > 60 mL/min (>60); GLUCOSE,RANDOM 103 mg/dL (70-110); POTASSIUM 3.9 mmol/L (3.5-5.1); SODIUM SERUM 141 mmol/L (136-145); TOTAL PROTEIN, SERUM 7.1 g/dL (6.4-8.2); UREA NITROGEN, BLOOD 21 mg/dL (7-18); URIC ACID 7.3 mg/dL (2.6-7.2)
[2020-05-10 18:17] LABS: COVID AG,FIA SOURCE NASOPHARYNGEAL
[2020-05-10 18:51] LABS: CREATININE,URINE RANDOM 113.7 mg/dL (30.0-125.0)
[2020-05-10] MEDS ORDERED: ACETAMINOPHEN 500 MG TABLET PO ONE (20:00)
== END 2020-05-10 20:37 | disposition home or self-care (01) ==
LOC: 4S 16:30
PROVIDERS: ADMIT Obstetrics & Gynecology; ATTEND Obstetrics & Gynecology
DX: O62.9 Abnormality of forces of labor, unspecified (principal); Z20.828 Contact with and (suspected) exposure to other viral communicable diseases; Z3A.38 38 weeks gestation of pregnancy; Z79.899 Other long term (current) drug therapy
CPT/HCPCS: 80307; 82570; 84156; 84550; 87426; 99219

== ENCOUNTER 2020-05-11 16:40 | Observation (INO) | payer OTHER ==
[2020-05-11 17:14] VITALS: BP 127/69
[2020-05-11 19:02] LABS: TPROTEIN TIMED,URINE 14 mg/dL
[2020-05-11 19:03] LABS: COLLECTION TIME,URINE 24 HR; TPROTEIN URINE, 24HRS COLL 151 mg/24Hr (0-165)
== END 2020-05-11 20:30 | disposition home or self-care (01) ==
LOC: 4S 16:40
PROVIDERS: ADMIT Obstetrics & Gynecology; ATTEND Obstetrics & Gynecology
DX: O13.3 Gestational [pregnancy-induced] hypertension without significant proteinuria, third trimester (principal); Z3A.38 38 weeks gestation of pregnancy
CPT/HCPCS: 81050; 84156; 99219

== ENCOUNTER 2021-01-06 13:57 | Emergency (ER) | payer OTHER ==
[~2021-01-06] VITALS: Ht 167.6 cm; Wt 95.5 kg
[~2021-01-06 13:57] MED LIST changes: +DOCU-270 PO; -DOCU-275 PO
[2021-01-06] MEDS ORDERED: ALBUTEROL SULFATE HFA 90 MCG/PUFF 8 GM INHALER IH ONE (15:00)
[2021-01-06 15:17] LABS: COVID AG,FIA SOURCE NASOPHARYNGEAL
[2021-01-06 17:12] VITALS: BP 127/101
== END 2021-01-06 17:47 | disposition home or self-care (01) ==
LOC: EMS 13:59
DX: J06.9 Acute upper respiratory infection, unspecified (principal); Z20.822 Contact with and (suspected) exposure to COVID-19
CPT/HCPCS: 71045; 87426; 94640; 99284; U0003; J3535

== ENCOUNTER 2022-02-04 11:13 | Emergency (ER) | payer OTHER ==
[~2022-02-04] VITALS: Ht 165.1 cm; Wt 97.7 kg
[~2022-02-04 11:13] MED LIST changes: -DOCU-270 PO; +DOCU-385 PO; -FERR-89 PO; +FERR325T27 PO
[2022-02-04] MEDS ORDERED: PredniSONE 20 MG TABLET PO ONE (12:45)
[2022-02-04] MEDS ORDERED: PRED-554 PO (12:46)
[2022-02-04 12:57] VITALS: BP 137/83
== END 2022-02-04 12:54 | disposition home or self-care (01) ==
LOC: EMS 11:13
DX: R21 Rash and other nonspecific skin eruption (principal); F19.90 Other psychoactive substance use, unspecified, uncomplicated; Z88.0 Allergy status to penicillin; Z90.89 Acquired absence of other organs; Z98.890 Other specified postprocedural states; Z87.891 Personal history of nicotine dependence
CPT/HCPCS: 99283; J7512

== ENCOUNTER 2022-02-07 20:48 | Emergency (ER) | payer OTHER ==
[~2022-02-07] VITALS: Ht 165.1 cm; Wt 97.7 kg
[~2022-02-07 20:48] MED LIST changes: +PRED-554 PO
[2022-02-07] MEDS ORDERED: NITR-75 PO (21:24)
[2022-02-07] MEDS ORDERED: PHEN-846 PO (21:24)
[2022-02-07 23:08] LABS: APPEARANCE,URINE CLEAR (CLEAR); BILIRUBIN,URINE NEGATIVE (NEGATIVE); GLUCOSE, URINE (UA) NEGATIVE (NEGATIVE); KETONES,URINE NEGATIVE (NEGATIVE); LEUKOCYTE ESTERASE ,URINE NEGATIVE (NEGATIVE); NITRATE,URINE NEGATIVE (NEGATIVE); OCCULT BLOOD,URINE SMALL (NEGATIVE); PH,URINE 5.5 (5.0-8.0); PROTEIN,URINE NEGATIVE (NEGATIVE); UROBILINOGEN,URINE <=1.0 mg/dL (<=1.0)
[2022-02-07 23:16] LABS: BACTERIA,URINE None Seen /HPF (None Seen); RBC,URINE 0-2 /HPF (0-2); SQUAMOUS EPITHELIAL CELL,UR Few /LPF (None Seen); WBC,URINE None Seen /HPF (0-5)
[2022-02-07] MEDS ORDERED: DOXY-354 PO (23:54)
[2022-02-08 00:45] VITALS: BP 129/82
== END 2022-02-08 00:18 | disposition home or self-care (01) ==
LOC: EMS 20:49
DX: H66.91 Otitis media, unspecified, right ear (principal); F15.10 Other stimulant abuse, uncomplicated; F19.10 Other psychoactive substance abuse, uncomplicated; I10 Essential (primary) hypertension; K80.20 Calculus of gallbladder without cholecystitis without obstruction; Z88.0 Allergy status to penicillin
CPT/HCPCS: 81001; 84703; 99283

== ENCOUNTER 2022-03-02 11:56 | Emergency (ER) | payer OTHER ==
[~2022-03-02] VITALS: Ht 165.1 cm; Wt 102.0 kg
[~2022-03-02 11:56] MED LIST changes: +DOXY-354 PO; +NITR-75 PO; +PHEN-846 PO; -PREN-217 PO
[2022-03-02] MEDS ORDERED: NIFE-40 PO (12:07)
[2022-03-02 12:16] VITALS: BP 130/58
[2022-03-02 12:40] LABS: COVID AG,FIA SOURCE NASAL SWAB
[2022-03-02 12:50] LABS: INFLUENZA TYPE A NEGATIVE FOR TYPE A (NEGATIVE); INFLUENZA TYPE B NEGATIVE FOR TYPE B (NEGATIVE)
[2022-03-02] MEDS ORDERED: AZIT250T9 PO (14:03)
== END 2022-03-02 14:20 | disposition home or self-care (01) ==
LOC: EMS 12:07
DX: J06.9 Acute upper respiratory infection, unspecified (principal); I10 Essential (primary) hypertension; K80.80 Other cholelithiasis without obstruction; F15.90 Other stimulant use, unspecified, uncomplicated; F11.90 Opioid use, unspecified, uncomplicated; Z86.2 Personal history of diseases of the blood and blood-forming organs and certain disorders involving the immune mechanism; Z86.59 Personal history of other mental and behavioral disorders; Z98.890 Other specified postprocedural states; Z88.0 Allergy status to penicillin; Z20.822 Contact with and (suspected) exposure to COVID-19
CPT/HCPCS: 87804; 99283

== ENCOUNTER 2023-05-20 20:39 | Emergency (ER) | payer OTHER ==
[~2023-05-20] VITALS: Ht 165.1 cm; Wt 102.0 kg
[~2023-05-20 20:39] MED LIST changes: -DOCU-385 PO; -DOXY-354 PO; -FERR325T27 PO; -IBUP-2071 PO; +NIFE-40 PO; -NITR-75 PO; -PERCT PO; -PHEN-846 PO; -PRED-554 PO
[2023-05-20] MEDS ORDERED: LORazepam 2 MG/ML VIAL IVP ONE (21:00)
[2023-05-20 21:39] LABS: BASOPHILS % (AUTO) 0.6 % (0.0-2.0); EOSINOPHILS % (AUTO) 0.2 % (1.0-6.0); HEMATOCRIT 36.7 % (36-46); HEMOGLOBIN 12.3 g/dL (12.0-16.0); MEAN CORPUSCULAR HEMOGLOBIN 29.8 pg (26.0-34.0); MEAN CORPUSCULAR HGB CONC 33.6 G/dL (31.0-37.0); MEAN CORPUSCULAR VOLUME 89 fL (80-100); MONOCYTES # (AUTO) 0.8 K/uL (0.1-1.0); MONOCYTES % (AUTO) 7.8 % (2.0-9.0); NEUTROPHILS # (AUTO) 8.1 K/uL (1.8-7.7); NEUTROPHILS % (AUTO) 81.4 % (40.0-70.0); PLATELET COUNT (AUTO) 351 K/uL (150-450); RED BLOOD CELL COUNT(AUTO) 4.13 MIL/uL (4.00-5.20); RED CELL DISTRIBUTION WIDTH 14.2 % (11.5-14.5); WHITE BLOOD COUNT (AUTO) 9.9 K/uL (4.5-11.0)
[2023-05-20 21:55] LABS: ALCOHOL, BLOOD (SERUM) < 3 mg/dL (0-10)
[2023-05-20 21:56] LABS: TROPONIN I-HIGH SENSITIVITY 26 ng/L (<51)
[2023-05-20 21:59] LABS: LACTIC ACID 2.1 mmol/L (0.4-2.0)
[2023-05-20 22:13] LABS: ALANINE AMINOTRANSFERASE 49 U/L (12-78); ALBUMIN 3.9 g/dL (3.4-5.0); ALKALINE PHOSPHATASE 104 U/L (46-116); ANION GAP 13 mmol/L (8-16); ASPARTATE AMINOTRANSFERASE 42 U/L (15-37); BILIRUBIN,TOTAL 1.5 mg/dL (0.1-1.0); CARBON DIOXIDE 26 mmol/L (22-29); CHLORIDE 104 mmol/L (98-107); CREATINE KINASE, TOTAL ONLY 673 U/L (26-192); CREATININE 1.12 mg/dL (0.60-1.30); GLOMERULAR FILTR. RATE CALC 55 mL/min (>60); GLUCOSE,RANDOM 145 mg/dL (70-110); LIPASE 15 U/L (16-77); SODIUM SERUM 143 mmol/L (136-145); UREA NITROGEN, BLOOD 25 mg/dL (7-18)
[2023-05-20 22:15] LABS: POTASSIUM 2.9 mmol/L (3.5-5.1)
[2023-05-20] MEDS ORDERED: POTASSIUM CHLORIDE 10% 40 MEQ/30 ML LIQUID UDCUP PO ONE (22:30)
[2023-05-20 22:40] LABS: APPEARANCE,URINE CLEAR (CLEAR); BILIRUBIN,URINE NEGATIVE (NEGATIVE); COLOR,URINE YELLOW (YELLOW); GLUCOSE, URINE (UA) NEGATIVE (NEGATIVE); LEUKOCYTE ESTERASE ,URINE NEGATIVE (NEGATIVE); NITRATE,URINE NEGATIVE (NEGATIVE); OCCULT BLOOD,URINE TRACE (NEGATIVE); PH,URINE 5.5 (5.0-8.0); PH,URINE DRUG SCREEN 5.5 (5.0-8.0); PROTEIN,URINE 30-70 mg/dL (NEGATIVE); SPECIFIC GRAVITIY, URINE 1.026 (1.003-1.030); UROBILINOGEN,URINE <=1.0 mg/dL (<=1.0)
[2023-05-20 22:52] LABS: ALCOHOL, URINE DRUG SCREEN NEGATIVE (NEGATIVE); AMPHET/METH SCREEN,URINE POSITIVE (NEGATIVE); BARBITURATE SCREEN, URINE NEGATIVE (NEGATIVE); BENZODIAZEPINES SCREEN,URINE NEGATIVE (NEGATIVE); CANNABINOID SCREEN,URINE NEGATIVE (NEGATIVE); COCAINE SCREEN,URINE NEGATIVE (NEGATIVE); METHADONE SCREEN, URINE NEGATIVE (NEGATIVE); OPIATE SCREEN,URINE NEGATIVE (NEGATIVE); PHENCYCLIDINE SCREEN,URINE NEGATIVE (NEGATIVE)
[2023-05-20 22:59] LABS: BACTERIA,URINE None Seen /HPF (None Seen); RBC,URINE 0-2 /HPF (0-2); SQUAMOUS EPITHELIAL CELL,UR None Seen /LPF (None Seen); WBC,URINE None Seen /HPF (0-5)
[2023-05-20 23:45] VITALS: BP 145/78; PULSE 103; RESP 16
== END 2023-05-21 00:45 | disposition home or self-care (01) ==
LOC: EMS 20:40
DX: F15.10 Other stimulant abuse, uncomplicated (principal); E87.6 Hypokalemia; I10 Essential (primary) hypertension; Z90.89 Acquired absence of other organs; Z98.890 Other specified postprocedural states; Z87.891 Personal history of nicotine dependence; Z88.0 Allergy status to penicillin
CPT/HCPCS: 99291; 96374; 71045; 80053; 81001; 82550; 83605; 83690; 84484; 84703; 85025; 36415; 93005; 80307; G0480; J2060

== ENCOUNTER 2023-07-14 20:35 | Emergency (ER) | payer OTHER ==
[~2023-07-14] VITALS: Ht 165.1 cm; Wt 102.0 kg
[2023-07-14 21:05] VITALS: BP 148/92; PULSE 88; RESP 20; TEMP 98.6
== END 2023-07-14 22:09 | disposition left against medical advice (07) ==
LOC: EMS 20:36
DX: M79.645 Pain in left finger(s) (principal); Z53.21 Procedure and treatment not carried out due to patient leaving prior to being seen by health care provider
CPT/HCPCS: 99281; Z7502